=== PATIENT | male | born 1980 | race Caucasian/White ===

== ENCOUNTER 2017-08-20 03:30 | Emergency (ER) | payer OTHER ==
[2017-08-20] MEDS ORDERED: Sodium Chloride 0.9% 1,000 ML IV ONE (04:11)
[2017-08-20] MEDS ORDERED: Sodium Chloride 0.9% 10 ML Syringe FLUSH PRN (04:11)
[2017-08-20] MEDS ORDERED: Pantoprazole 40 MG Vial IVPUSH ONE (04:12)
--- NOTE | 2017-08-20 04:25 | EDM.PDOC ---
ED HPI GENERAL MEDICAL PROBLEM - General Chief Complaint: Abdominal Pain Stated Complaint: LOWER ABDOMEN Time Seen by Provider: 08/20/17 03:55 - History of Present Illness INITIAL COMMENTS - FREE TEXT/NARRATIVE: Patient presents with lower left quadrant abdominal pain. This is a chronic condition for him over the last 3-4 weeks. He's been seen in multiple clinics as well as multiple emergency rooms with no clear etiology. He does have a follow-up appointment with his primary care provider on Friday of this week, recent emergency room visit at [facility] included a restaurant hospitality manager referral which is at the end of this month. Patient states that after getting off work earlier this morning he did go to one of the convenient store is in [facility] and grabbed some food. After eating his food became slightly nauseated with the left lower quadrant abdominal pain. Rest size at about 2:30 this morning. He currently does endorse pain to his left lower quadrant given 7 out of 10, states he does have some intermittent nausea, patient states that the pain starts in the left lower quadrant and wraps around to the middle of his back it's a sharp stabbing cramping sensation. Patient reports the pain to be intermittent. He also reports that the pain can sometimes worsen after he has bowel movements. Patient denies chest pain, shortness of breath, any changes neurologically, he denies any numbness tingling to the arms or jaw, states he is having regular bowel movements and bladder movements with no blood seen in either. He does state he had a recent colonoscopy that was normal. He recently did see urology as he does have a bladder mass. This appears to be noncancerous in nature. Patient is a former smoker, drinks alcohol on very rare occasions, does deny any use of illegal drugs. He was at one time someone who used marijuana. Onset: Today, Sudden Onset Time: 02:30 Duration: Chronic, Intermittent Location: Reports: Abdomen Quality: Reports: Sharp, Stabbing Severity: Moderate Worsens with: Reports: Eating, Movement Associated Symptoms: Reports: Nausea/Vomiting Left Lower Abdomen Pain Score (Numeric/FACES): 7 - Related Data Allergies Allergy/AdvReac Type Severity Reaction Status Date / Time aspirin Allergy Other Verified 08/20/17 03:36 buspirone [From BuSpar] Allergy Difficulty Verified 08/20/17 03:36 Breathing Home Meds: Home Meds Albuterol Sulfate [Ventolin Hfa] 8 gm IH ASDIRECTED PRN 08/20/17 [History] Escitalopram [Lexapro] 10 mg PO DAILY 08/20/17 [History] Fluticasone Propionate [Flonase] 0 gm NASBOTH DAILY 08/20/17 [History] Omeprazole Magnesium [Prilosec Otc] 20 mg PO DAILY 08/20/17 [History] Past Medical History Respiratory History: Reports: Asthma Gastrointestinal History: Reports: GERD Psychiatric History: Reports: Anxiety, Depression - Past Surgical History HEENT Surgical History: Reports: Oral Surgery Social & Family History - Tobacco Use Smoking Status *Q: Former Smoker Used Tobacco, but Quit: Yes Month Tobacco Last Used: 2004 ED ROS GENERAL - Review of Systems Review Of Systems: See Below Constitutional: Reports: No Symptoms HEENT: Reports: No Symptoms Respiratory: Reports: No Symptoms Cardiovascular: Reports: No Symptoms Endocrine: Reports: No Symptoms GI/Abdominal: Reports: Abdominal Pain, Nausea, Vomiting : Reports: No Symptoms Musculoskeletal: Reports: Back Pain Skin: Reports: No Symptoms Neurological: Reports: No Symptoms Psychiatric: Reports: No Symptoms Hematologic/Lymphatic: Reports: No Symptoms Immunologic: Reports: No Symptoms ED EXAM, GI/ABD - Physical Exam Exam: See Below Exam Limited By: No Limitations General Appearance: Alert, WD/WN, No Apparent Distress Eyes: Bilateral: Normal Appearance, EOMI Ears: Normal External Exam, Normal Canal, Hearing Grossly Normal, Normal TMs Nose: Normal Inspection, Normal Mucosa, No Blood Throat/Mouth: Normal Inspection, Normal Lips, Normal Teeth, Normal Gums, Normal Oropharynx, Normal Voice, No Airway Compromise Head: Atraumatic, Normocephalic Neck: Normal Inspection, Supple, Non-Tender, Full Range of Motion Respiratory/Chest: No Respiratory Distress, Lungs Clear, Normal Breath Sounds, No Accessory Muscle Use, Chest Non-Tender Cardiovascular: Normal Peripheral Pulses, Regular Rate, Rhythm, No Edema, No Gallop, No JVD, No Murmur, No Rub GI/Abdominal Exam: Normal Bowel Sounds, Soft, Non-Tender, No Organomegaly, No Distention, No Abnormal Bruit, No Mass, Pelvis Stable Extremities: Normal Inspection, Normal Range of Motion, Non-Tender, Normal Capillary Refill, No Pedal Edema Neurological: Alert, Oriented, CN II-XII Intact, Normal Cognition, Normal Gait, Normal Reflexes, No Motor/Sensory Deficits Psychiatric: Normal Affect, Normal Mood Skin Exam: Warm, Dry, Intact, Normal Color, No Rash Lymphatic: No Adenopathy Course - Vital Signs Last Recorded V/S: Last Vital Signs Temp 35.7 C 08/20/17 03:32 Pulse 73 08/20/17 03:32 Resp 16 08/20/17 03:32 BP 119/69 08/20/17 03:32 Pulse Ox 96 08/20/17 03:32 - Re-Assessments/Exams Free Text/Narrative Re-Assessment/Exam: 08/20/17 05:23 All labs reviewed. No acute cause for his abdominal pain. Recent abdominal CT 08/09/17 did not show acute cause for abdominal pain. No changes to symptoms. Will not order CT this AM. Prescribed 40 mg of protonix to replace his prilosec as he did state an improvement in abdominal pain after receiving the IV protonix. Departure - Departure Time of Disposition: 05:18 Disposition: Home, Self-Care 01 Condition: Good Clinical Impression: Abdominal pain of unknown etiology - Discharge Information Instructions: Abdominal Pain, Adult, [id number] Additional Instructions: Keep your follow-up appointment with her primary care provider on Friday. Review of her labs today do not show an acute cause for your chronic abdominal pain. I am going to give you a prescription for Protonix. Take this instead of the prilosec since this did help your pain this morning. Stay well hydrated. You can also try Imodium. This may help with the abdominal pain. Please call with any questions or concerns. - Problem List & Annotations (1) Abdominal pain of unknown etiology SNOMED Code(s): 798537445 Code(s): R10.9 - UNSPECIFIED ABDOMINAL PAIN Status: Acute Priority: Low Current Visit: Yes - Problem List Review Problem List Initiated/Reviewed/Updated: Yes - Assessment/Plan Assessment:: Abdominal pain of unknown etiology Plan: Keep your follow-up appointment with her primary care provider on Friday. Review of her labs today do not show an acute cause for your chronic abdominal pain. I am going to give you a prescription for Protonix. Take this instead of the prilosec since this did help your pain this morning. Stay well hydrated. You can also try Imodium. This may help with the abdominal pain. Please call with any questions or concerns.
[2017-08-20] MEDS ORDERED: Loperamide 2 MG Cap PO ONE (04:37)
[2017-08-20 05:00] LABS: CHLORIDE,CL 106 mmol/L (98-107); SODIUM,NA 143 mmol/L (136-145)
== END 2017-08-20 05:30 | disposition home or self-care (01) ==
LOC: VM.ED 03:30
DX: R10.32 Left lower quadrant pain (principal); K21.9 Gastro-esophageal reflux disease without esophagitis; J45.909 Unspecified asthma, uncomplicated; Z88.8 Allergy status to other drugs, medicaments and biological substances; Z79.899 Other long term (current) drug therapy; Z87.891 Personal history of nicotine dependence
CPT/HCPCS: 36415; 80053; 81001; 83690; 85025; 86140; 96361; 96374; 99284; A9270; C9113; J7030; J7050

== ENCOUNTER 2017-08-25 19:51 | Emergency (ER) | payer OTHER ==
--- NOTE | 2017-08-25 21:32 | EDM.PDOC ---
ED HPI GENERAL MEDICAL PROBLEM - General Chief Complaint: Abdominal Pain Stated Complaint: Left lower quadrant abdominal pain radiating around to the left flank, sudden onset about 7 pm. Time Seen by Provider: 08/25/17 20:40 Source of Information: Reports: Patient, Old Records, RN History Limitations: Reports: No Limitations - History of Present Illness INITIAL COMMENTS - FREE TEXT/NARRATIVE: Patient has been having problems with intermittent generalized and localized abdominal pain for the last 4-6 weeks. He has seen multiple providers here and in [place]. He has had a colonoscopy and an abdominal CT as well as a Gallbladder ultrasound which were reported as normal. He has a gastroenterology consult scheduled in [place] on the . He has been started on Lexapro as his PCP thinks there is an anxiety component to the pain per patient. He was started on pantoprazole about a week ago and his PCP increased it to twice a day. He was told to use miralax and did for a while then quit. He has a history of an Ulcer and H Pylori treated in 2012. H. Pylori stool sample was sent off on Friday by his PCP at [facility] in [place]. Patient came in [facility] with similar symptoms to what he has been experiencing for the last 6 weeks. LLQ pain radiating around to the left mid back and some lower sternal and epigastric tenderness. He was concerned because he didnt eat much today but the pain came on anyway even though he has had little to eat so he decided to come into ER. His baseline pain is 5/10. When he came in [facility] it was 10/10 but now down to 6-7/10. Onset: Sudden Onset Date: 08/25/17 Duration: Chronic, Improving Location: Reports: Abdomen, Radiates to (LLQ of abdomen radiates to left mid back) Quality: Reports: Same as Previous Episode, Stabbing Severity: Severe Improves with: Reports: None Worsens with: Reports: None Associated Symptoms: Denies: Confusion, Cough, Diaphoresis, Fever/Chills, Headaches, Loss of Appetite, Malaise, Shortness of Breath, Syncope, Weakness - Related Data Allergies Allergy/AdvReac Type Severity Reaction Status Date / Time aspirin Allergy Other Verified 08/25/17 20:13 buspirone [From BuSpar] Allergy Difficulty Verified 08/25/17 20:13 Breathing Home Meds: Home Meds Albuterol Sulfate [Ventolin Hfa] 8 gm IH ASDIRECTED PRN 08/20/17 [History] Escitalopram [Lexapro] 10 mg PO DAILY 08/20/17 [History] Fluticasone Propionate [Flonase] 0 gm NASBOTH DAILY 08/20/17 [History] Omeprazole Magnesium [Prilosec Otc] 20 mg PO DAILY 08/20/17 [History] Pantoprazole Sodium 40 mg PO BID 08/25/17 [History] Past Medical History Respiratory History: Reports: Asthma Gastrointestinal History: Reports: GERD Neurological History: Reports: Concussion, Other (See Below) 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 Denies: Shortness of Breath, Wheezing, Cough Cardiovascular: Reports: No Symptoms. Denies: Chest Pain, Dyspnea on Exertion, Edema Endocrine: Reports: No Symptoms GI/Abdominal: Reports: Abdominal Pain, Distension, Flatus. Denies: Black Stool , Bloody Stool, Decreased Appetite, Difficulty Swallowing, Melena, Mucous in Stool, Nausea, Vomiting : Reports: Flank Pain, Other (foul smelling urine with decreased fluid intake recently). Denies: Dysuria, Frequency, Hematuria, Pain, Urgency Musculoskeletal: Reports: No Symptoms Skin: Reports: No Symptoms Neurological: Reports: No Symptoms Psychiatric: Reports: Anxiety Hematologic/Lymphatic: Reports: No Symptoms Immunologic: Reports: No Symptoms ED EXAM, GI/ABD - Physical Exam Exam: See Below Exam Limited By: No Limitations General Appearance: Alert, WD/WN, No Apparent Distress Eyes: Bilateral: Normal Appearance, Abnormal EOM Ears: Normal External Exam, Normal Canal, Hearing Grossly Normal, Normal TMs Nose: Normal Inspection, Normal Mucosa, No Blood Throat/Mouth: Normal Inspection, Normal Lips, Normal Teeth, Normal Gums, Normal Oropharynx, Normal Voice, No Airway Compromise Head: Atraumatic, Normocephalic Neck: Normal Inspection, Supple, Non-Tender, Full Range of Motion Respiratory/Chest: No Respiratory Distress, Lungs Clear, Normal Breath Sounds, No Accessory Muscle Use, Chest Non-Tender Cardiovascular: Normal Peripheral Pulses, Regular Rate, Rhythm, No Edema, No Gallop, No JVD, No Murmur, No Rub GI/Abdominal Exam: Normal Bowel Sounds, Soft, No Organomegaly, No Distention, No Mass, Tender (mild diffuse generalized tenderness more localized to the LLQ) . No: Distended, Guarding, Rigid, Rebound (Male) Exam: Deferred Rectal (Males) Exam: Deferred Back Exam: Normal Inspection, Full Range of Motion, CVA Tenderness (L) (mild left CVA tenderness) Extremities: Normal Inspection, Normal Range of Motion, Non-Tender, Normal Capillary Refill, No Pedal Edema Neurological: Alert, Oriented, CN II-XII Intact, Normal Cognition, Normal Gait, Normal Reflexes, No Motor/Sensory Deficits Psychiatric: Normal Affect, Normal Mood Skin Exam: Warm, Dry, Intact, Normal Color, No Rash Lymphatic: No Adenopathy Course - Vital Signs Last Recorded V/S: Last Vital Signs Temp 36.2 C 08/25/17 20:00 Pulse 74 08/25/17 20:00 Resp 16 08/25/17 20:00 BP 119/71 08/25/17 20:00 Pulse Ox 95 08/25/17 20:00 - Orders/Labs/Meds Orders: Active Orders 24 hr Category Date Time Status Abdomen 2V AP Flat Upright [CR] Stat Exams 08/25/17 21:10 Taken Labs: Laboratory Tests 08/25/17 08/25/17 08/25/17 Range/Units 21:16 21:29 21:29 WBC 7.0 (4.0-10.0) x10^3/uL RBC 4.82 (4.5-6.0) x10^6/uL Hgb 13.9 L (14.0-18.0) g/dL Hct 40.8 (40.0-52.0) % MCV 84.6 (78.0-93.0) fL MCH 28.8 (26.0-32.0) pg MCHC 34.1 (32.0-36.0) g/dL RDW Coeff of Disha 13.0 (10.0-15.0) % Plt Count 252 (130-400) x10^3/uL Neut % (Auto) 53.7 (50.0-80.0) % Lymph % (Auto) 30.7 (25.0-50.0) % [place] % (Auto) 11.8 H (2.0-11.0) % Eos % (Auto) 2.9 (0.0-4.0) % Baso % (Auto) 0.9 (0.2-1.2) % Sodium 144 (136-145) mmol/L Potassium 3.9 (3.5-5.1) mmol/L Chloride 106 (98-107) mmol/L Carbon Dioxide 29 (21-32) mmol/L BUN 16 (7-18) mg/dL Creatinine 1.0 (0.70-1.30) mg/dL Est Cr Clr Drug Dosing TNP Estimated GFR (MDRD) > 60 Glucose 87 (74-106) mg/dL Calcium 9.2 (8.5-10.1) mg/dL Corrected Calcium 9.12 (8.5-10.1) mg/dL Total Bilirubin 0.4 (0.2-1.0) mg/dL AST 24 (15-37) U/L ALT 47 (16-63) U/L Alkaline Phosphatase 102 (46-116) U/L Total Protein 7.9 (6.4-8.2) g/dL Albumin 4.1 (3.4-5.0) g/dL Globulin 3.8 Albumin/Globulin Ratio 1.08 Urine Color Yellow (YELLOW) Urine Appearance Clear (CLEAR) Urine pH 7.0 (5.0-8.0) Ur Specific [place] 1.025 Urine Protein Negative (NEGATIVE) mg/dL Urine Glucose (UA) Negative (NEGATIVE) mg/dL Urine Ketones Negative (NEGATIVE) mg/dL Urine Occult Blood Negative (NEGATIVE) Urine Nitrite Negative (NEGATIVE) Urine Bilirubin Negative (NEGATIVE) Urine Urobilinogen 0.2 (0.2) EU/dL Ur Leukocyte Esterase Negative (NEGATIVE) Urine RBC 0-5 (NOT SEEN) /HPF Urine WBC 0-5 (NOT SEEN) /HPF Ur Squamous Epith Cells Rare (NEGATIVE) /HPF Urine Bacteria Not seen (NEGATIVE) /HPF Urine Mucus Not seen (NEGATIVE) /LPF - Radiology Interpretation Free Text/Narrative:: Abdominal flat and upright read by radiology as no acute abnormality. Patient evaluated and discussed history and current symptoms with at length. Reviewed history from visit in ER here one week ago with another provider. Symptoms and exam are virtually the same . Labs and diagnostics done including CBC, CMP, UA and abdominal flat and upright with no significant abnormalities noted. Discussed with patient lab results. Advised on restarting miralax and adding probiotic supplement to regimen. Patient quite anxious at first but became calmer as we talked. Pain back to baseline at discharge 03/19. Patient has had extensive workup already which was unremarkable and no acute reason or change in symptoms noted to require repeat CT at this time. Patient advised to keep appointment with Gastroenterology and return to PCP or ER if he develops new or changing symptoms. He verbalized understanding and agreed with treatment plan. Departure - Departure Time of Disposition: 22:15 Disposition: Home, Self-Care 01 Condition: Good Clinical Impression: Abdominal pain Qualifiers: Abdominal location: generalized Qualified Code(s): R10.84 - Generalized abdominal pain - Discharge Information Instructions: Abdominal Pain, Adult, [id number], Gastroesophageal Reflux Disease, Adult Referrals: PCP,Not In Area [Primary Care Provider] - Forms: ED Department Discharge Additional Instructions: Try to stay away from drinking pop. Start using Miralax again. Drink more water. Start using an Over the counter probiotic supplement or eat yogurt once daily. Keep your appointment with the bow maker production. - My Orders Last 24 Hours: My Active Orders 08/25/17 21:10 Abdomen 2V AP Flat Upright [CR] Stat - Assessment/Plan Last 24 Hours: My Active Orders 08/25/17 21:10 Abdomen 2V AP Flat Upright [CR] Stat
[2017-08-25 21:55] LABS: CHLORIDE,CL 106 mmol/L (98-107); SODIUM,NA 144 mmol/L (136-145)
== END 2017-08-25 22:19 | disposition home or self-care (01) ==
LOC: VM.ED 19:51
DX: R10.84 Generalized abdominal pain (principal); J45.909 Unspecified asthma, uncomplicated; K21.9 Gastro-esophageal reflux disease without esophagitis; Z87.891 Personal history of nicotine dependence; Z79.899 Other long term (current) drug therapy; Z88.6 Allergy status to analgesic agent; Z88.8 Allergy status to other drugs, medicaments and biological substances
CPT/HCPCS: 36415; 74020; 80053; 81001; 85025; 99284